=== PATIENT | male | born 1980 ===

== ENCOUNTER 2018-06-21 12:49 | Inpatient (IN) ==
[2018-06-21] MEDS ORDERED: Acetaminophen 325 MG Tablet PO PRN (16:55)
[2018-06-21] MEDS ORDERED: Bisacodyl 10 MG Supp RECTAL PRN (16:55)
[2018-06-21] MEDS ORDERED: LORazepam 1 MG Tablet PO PRN (17:02)
[2018-06-21] MEDS ORDERED: Haloperidol Inj 5 MG/ML Ampul IV.PUSH PRN (17:02)
--- NOTE | 2018-06-21 17:14 | P.HPCC ---
History of Present Illness Service: Critical care medicine Primary Care Physician: UNKNOWN Chief Complaint: Left foot pain History of Present Illness: This is a 38-year-old male. Date of admission 06/21/2018. Past medical history includes hepatitis C, ongoing EtOH and tobacco abuse and Suboxone use. Patient was admitted to [facility] as a Asaf Duran. He was found on the streets barefoot intoxicated trying to intrude a house which is not his. He was agitated swearing and required restraints. She received ziprasidone, haloperidol, lorazepam and chlorpromazine. He is admitted to the ICU at that facility secondary to severe delirium secondary to polysubstance abuse. CT brain at that facility revealed no acute intracranial findings. Patient had elevated transaminases likely secondary to rhabdomyolysis. He had elevated creatinine which is prerenal secondary to dehydration. Received aggressive hydration this is resolved. Was evaluated by Dr. Preston/psychiatry and placed on as needed haloperidol and chlorpromazine. He is currently receiving Lorazepam 0.5 mg 3 times daily as needed severe agitation. X-ray the foot reveal a left calcaneal fracture. Was evaluated by the orthopedic doctor that facility Vicky Who requested an emergent transfer to a trauma facility for emergent surgery. Patient complaining of pain in the left lower extremity is currently in a soft splint cast. Warm extremities well perfused. Call accepted for transfer center to evaluate patient. We will admit and transfer to hospitalist in a.m. 06/22. All laboratories and imaging are currently pending at time of dictation. Inpatient Certification: I certify that the inpatient services were ordered in accordance with Medicare regulations governing the order. This includes certification that hospital inpatient services are reasonable and necessary and in the case of services not specified as inpatient-only under 42 CFR 419.22(n), that they are appropriately provided as inpatient services in accordance to with the 2-midnight benchmark under 43 CFR 412.3(e) Estimated Total Length of Stay (Days): 3 Plans for Post Hospital Care: Not yet determined Review of Systems Constitutional: Reports body ache(s), Reports weakness, Denies anorexia, Denies night sweats Eyes: Denies blind spots, Denies blurry vision Ears, Nose, Mouth, and Throat: Denies facial pain, Denies post nasal drip, Denies throat swelling Cardiovascular: Denies chest pain, Denies shortness of breath Respiratory: Denies shortness of breath, Denies wheezing Gastrointestinal: Denies abdominal pain, Denies nausea, Denies vomiting Genitourinary: Denies urinary incontinence Musculoskeletal: Reports abnormal walking, Reports joint pain, Reports joint swelling, Denies stiffness Skin/Breast: Denies rash Neurologic: Reports confusion, Denies headache(s), Denies lack of coordination, Denies localized weakness, Denies restless legs, Denies tremor(s) Psychiatric: Denies anxiety, Denies panic attacks, Denies paranoia Endocrine: Denies increased urination Hematologic/Lymphatic: Denies easy bleeding Allergic/Immunologic: Denies GI upset with certain foods PMFSH - History History Provided By: Patient - Medical History Medical History: Medical History (Last Updated 06/21/18 @ 17:19 by Rojas Brown MD) Alcohol use Dental injury Hepatitis C Polysubstance dependence including opioid type drug, episodic abuse, with delirium Tobacco abuse - Surgical History Surgical History: Surgical History (Last Updated 06/21/18 @ 17:19 by Rojas Brown MD) Metal plate in left side of face Metal plate in right side of face - Family History Family History: Family History (Last Updated 06/21/18 @ 17:18 by Rojas Brown MD) Other No family history of cancer No family history of cerebrovascular accident No family history of sudden - Tobacco History Second Hand Smoke Exposure: Yes Tobacco Use In Past 30 Days: Yes Smoking Status: Former smoker Tobacco Type: Cigarettes - Alcohol History How Often Do You Have a Drink Containing Alcohol: 2 to 3 times a week - Substance Use History Substance History: Past History - Substance Use Type Alcohol Status: Active Route Used: By Mouth Opiates Status: Active Route Used: By Mouth, Intravenously Comment: positve on arrival to [facility] Medications and Allergies Active Medications: Active Medications Acetaminophen (Tylenol) 650 mg PO Q6H PRN PRN Reason: PAIN 1-10 AND/OR FEVER >101F Al Hydroxide/Mg Hydroxide (Milk Of Magnjean Liq) 30 ml PO Q12H PRN PRN Reason: Mild Constipation Albuterol (Albuterol Neb (Prn)) 2.5 mg NEB Q2HR NEB PRN PRN Reason: SHORTNESS OF BREATH/WHEEZING Bisacodyl (Dulcolax Supp) 10 mg RECTAL DAILY PRN PRN Reason: SEVERE CONSITIPATION Chlorhexidine Gluconate (Chlorhexidine 2% Cloth) 3 pack TOPICAL DAILY@0400 PARAS Stop: 06/27/18 03:59 Chlorhexidine Gluconate (Chlorhexidine 2% Cloth) 3 pack TOPICAL DAILY@0400 PRN PRN Reason: Extra cloth needed Stop: 06/27/18 03:59 Famotidine (Pepcid Pf Inj) 20 mg IV.PUSH Q12HR [facility] Flumazenil (Romazecon Inj) 0.2 mg IV.PUSH Q1M PRN PRN Reason: OVERSEDATION Folic Acid (Folic Acid) 1 mg PO DAILY [facility] Haloperidol Lactate (Haldol Inj) 1 mg IV.PUSH Q15M PRN PRN Reason: for severe agitation Heparin Sodium (Porcine) (Heparin Inj) 5,000 units SQ Q12H [facility] Sodium Chloride (Ns Inj) 1,000 mls @ 84 mls/hr IV.CONT .[id number] [facility] Lactulose (Lactulose Liq) 30 ml PO DAILY PRN PRN Reason: SEVERE CONSITIPATION Lorazepam (Ativan) 1 mg PO Q4H PRN PRN Reason: for CIWA 8-10 Lorazepam (Ativan) 2 mg PO Q2H PRN PRN Reason: for CIWA 11-14 Lorazepam (Ativan Inj) 2 mg IV.PUSH Q2H PRN PRN Reason: for CIWA 11-14 Lorazepam (Ativan Inj) 2 mg IV.PUSH Q1H PRN PRN Reason: for CIWA 15-20 Lorazepam (Ativan Inj) 2 mg IV.PUSH Q15M PRN PRN Reason: for CIWA > 20 Lorazepam (Ativan Inj) 1 mg IV.PUSH Q4H PRN PRN Reason: for CIWA 8-10 Morphine Sulfate (Morphine Inj) 2 mg IV.PUSH Q2H PRN PRN Reason: PAIN SCALE 6 TO 10 Multivitamins (Theragran) 1 tab PO DAILY [facility] Senna/Docusate Sodium (Karina-Colace) 1 tab PO BID [facility] Sennosides (Senokot) 17.2 mg PO Q12H PRN PRN Reason: Moderate Constipation Sodium Chloride (Ns Flush) 2 ml IV.FLUSH BID [facility] Sodium Chloride (Ns Flush) 2 ml IV.FLUSH PRN PRN PRN Reason: FLUSH AFTER USING IV ACCESS Thiamine HCl (Vitamin B1) 100 mg PO DAILY [facility] Ziprasidone (Geodon Inj) 10 mg IM Q12H PRN PRN Reason: Breakthrough agitation Stop: 06/24/18 17:02 Allergies Allergy/AdvReac Type Severity Reaction Status Date / Time No Known Allergies Allergy Unverified 06/21/18 16:55 Home Medications Medication Instructions Recorded Confirmed Type No Known Home Medications 06/21/18 06/21/18 History Exam Vital signs: Vital Signs 06/21/18 17:00 Temperature 98.6 F Pulse Rate 65 Respiratory Rate 23 Blood Pressure 170/84 H Pulse Oximetry 97 Intake & Output 06/20/18 06/21/18 06/21/18 18:59 06:59 18:59 Output Total 450 / 450 Balance -450 / -450 Weight 72.3 kg Output: Urine 450 / 450 Other: Weight On Admission 72.3 kg - Constitutional no acute distress - Routine HEENT Exam Head: Present: normocephalic, atraumatic Eye: Present: EOMI, PERRL ENT: Present: mucous membranes moist - Routine Neck Exam Present: supple. Absent: JVD - Routine Chest/Breast/Axilla Exam Chest wall: Absent: tenderness - Routine Respiratory Exam Present: CTA bilaterally. Absent: rales, rhonchi, wheezes - Routine Cardiovascular Exam Present: RRR, S1, S2. Absent: murmur, rubs, S3, S4, click - Routine Abdominal Exam Present: soft, normoactive bowel sounds - Routine Extremities Exam Present: edema, joint swelling. Absent: cyanosis, clubbing, amputation - Routine Skin Exam Present: intact - Routine Neurological Exam Present: alert, oriented X3, CN II-XII intact Septic Shock Reassessment Septic shock perfusion: reassessment completed Caprini VTE Risk Assessment Caprini VTE Risk Assessment: No/Low Risk (score <= 1) Caprini Risk Assessment Model: Point Value = 1 Point Value = 2 Point Value = 3 Point Value = 5 Age 41-60 Minor surgery BMI > 25 kg/m2 Swollen legs Varicose veins or History of unexplained or recurrent spontaneous Oral contraceptives or hormone replacement Sepsis (< 1 month) Serious lung disease, including pneumonia (< 1 month) Abnormal pulmonary function Acute myocardial infarction Congestive heart failure (< 1 month) History of inflammatory bowel disease Medical patient at bed rest Age 61-74 Arthroscopic surgery Major open surgery (> 45 min) Laparoscopic surgery (> 45 min) Malignancy Confined to bed (> 72 hours) Immobilizing plaster cast Central venous access Age >= 75 History of VTE Family history of VTE Factor V Leiden Prothrombin [id number] Lupus anticoagulant Anticardiolipin antibodies Elevated serum homocysteine Heparin-induced thrombocytopenia Other congenital or acquired thrombophilia Stroke (< 1 month) Elective arthroplasty Hip, pelvis, or leg fracture Acute spinal cord injury (< 1 month) Prophylaxis Regimen: Total Risk Factor Score Risk Level Prophylaxis Regimen 0-1 Low Early ambulation 2 Moderate Order ONE of the following: *Sequential Compression Device (SCD) *Heparin 5000 units SQ BID 3-4 Higher Order ONE of the following medications: *Heparin 5000 units SQ TID *Enoxaparin/Lovenox 40 mg SQ daily (WT < 150 kg, CrCl > 30 mL/min) *Enoxaparin/Lovenox 30 mg SQ daily (WT < 150 kg, CrCl > 10-29 mL/min) *Enoxaparin/Lovenox 30 mg SQ BID (WT < 150 kg, CrCl > 30 mL/min) AND/OR *Sequential Compression Device (SCD) 5 or more Highest Order ONE of the following medications: *Heparin 5000 units SQ TID (Preferred with Epidurals) *Enoxaparin/Lovenox 40 mg SQ daily (WT < 150 kg, CrCl > 30 mL/min) *Enoxaparin/Lovenox 30 mg SQ daily (WT < 150 kg, CrCl > 10-29 mL/min) *Enoxaparin/Lovenox 30 mg SQ BID (WT < 150 kg, CrCl > 30 mL/min) AND *Sequential Compression Device (SCD) Assessment and Plan - Assessment and Plan Plan: Neuro/Psych: Acute delirium secondary to polysubstance abuse EtOH abuse History of tobacco abuse History of opiate abuse/Suboxone use CIWA protocol initiated. Thiamine, folate and multivitamin daily As needed haloperidol and ziprasidone CT brain and ultrasound revealed no acute intracranial findings Acetaminophen for fever Morphine sulfate 2 mg IV every 2 hours as needed pain CV: Patient is currently normal sinus rhythm not requiring antihypertensives and/or vasopressors Continue normal saline at 84 cc an hour Resp: Tobacco abuse Nasal cannula to maintain saturations greater than equal to 92% Incentive spirometry while awake Follow-up chest x-ray Tobacco cessation self-evaluation palpable be provided GI: History of hepatitis C Elevated transaminases Outpatient epilepsy workup including checking genotype and viral load Liver function tests will be evaluated now Follow-up CPK : No indication for Cesar catheter Endo: Sliding scale insulin if indicated to maintain euglycemia Renal: Resolved acute kidney injury secondary to dehydration/prerenal Follow BMP at this facility. Continue normal saline 84 cc an hour Heme: CBC currently pending. Coags currently pending. ID: Monitor for signs and symptomatology infection MSK: Left calcaneal fracture Consultation to Dr. Kimball for evaluation treatment FEN: Replace electrolytes as clinically indicated Access -Utilize peripheral IV. Central line if indicated Prophylaxis -GI -famotidine -DVT -SCD/heparin subcu Level 2 admission. Patient is stable from a critical care medicine standpoint. Assign care to hospitalist in a.m. 06/22. Code Status: Full code Discussed Condition With: Patient. ISC RN. CARE plan discussed and all questions answered. H&P: Quality - VTE Deep Vein Thrombosis/Pulmonary Embolism Present on Admission: No
[2018-06-21] MEDS: Sod Chloride 0.9% Inj 1,000 ML IV.CONT SCH (18:04)
[2018-06-21] MEDS: Heparin - SQ 10,000 UNITS/ML Vial SQ SCH (18:04)
[2018-06-21] MEDS: Morphine Inj 4 MG/ML Vial IV.PUSH PRN (18:24)
[2018-06-21 18:27] LABS: Baso % (Auto) 0.4 % (0.0-2.0); Eos % (Auto) 0.2 % (0.0-4.0); Hematocrit 39.3 % (39.0-51.0); Hemoglobin 13.6 gm/dL (13.0-17.0); Lymph # (Auto) 1.4 th/mm3 (1.0-4.8); Lymph % (Auto) 16.5 % (9.0-44.0); Mean Corpuscular HGB Conc 34.5 % (32.0-36.0); Mean Corpuscular Hemoglobin 32.1 pg (27.0-34.0); Mean Corpuscular Volume 92.8 fL (80.0-100.0); Mean Platelet Volume 7.4 fL (7.0-11.0); Mono # (Auto) 0.8 th/mm3 (0.0-0.9); Mono % (Auto) 9.2 % (0.0-8.0); Neut # (Auto) 6.3 th/mm3 (1.8-7.7); Neut % (Auto) 73.7 % (16.0-70.0); Platelet Count 213 th/mm3 (150-450); Red Blood Count 4.23 mil/mm3 (4.50-5.90); Red Cell Distribution Width 13.3 % (11.6-17.2); White Blood Count 8.5 th/mm3 (4.0-11.0)
[2018-06-21 18:37] LABS: Activated Partial Thrombo Time 26.8 sec (24.3-30.1)
[2018-06-21 18:45] LABS: Anion Gap 6 meq/L (5-15); Blood Urea Nitrogen 9 mg/dL (7-18); Calcium 8.6 mg/dL (8.5-10.1); Carbon Dioxide 26.4 meq/L (21.0-32.0); Chloride 107 meq/L (98-107); Glomerular Filtration Rate Greater Than 89 mL/min (>89); Glucose,Random 94 mg/dL (74-106); Magnesium 2.1 mg/dL (1.5-2.5); Phosphorus 3.5 mg/dL (2.5-4.9); Potassium 3.6 meq/L (3.5-5.1); Sodium 139 meq/L (136-145)
--- NOTE | 2018-06-21 18:49 | XR ---
EXAM DATE: 06/21/2018 6:36 PM EDT AGE/SEX: 38 years / Male INDICATIONS: Cough. CLINICAL DATA: This is the patient's initial encounter. Patient reports that signs and symptoms have been present for 1 day and indicates a pain score of 0/10. MEDICAL/SURGICAL HISTORY: None. None. COMPARISON: No prior exams available for comparison. FINDINGS: No focal consolidation or effusion. No pneumothorax. Heart size normal. CONCLUSION: No active disease. Electronically signed by: Law Acevedo MD 06/21/2018 6:47 PM EDT
[2018-06-21] MEDS: Famotidine PF Inj 20 MG/2 ML Vial IV.PUSH SCH (20:37)
[2018-06-21] MEDS: Senna/Docusate Sodium 8.6/50 MG Tablet PO SCH (20:37)
[2018-06-22] MEDS: Morphine Inj 4 MG/ML Vial IV.PUSH PRN ×3 (00:36→05:48)
[2018-06-22] MEDS ORDERED: Chlorhexidine Gluconate 2% 1 Pack (2 Cloths) TOPICAL PRN (04:00)
[2018-06-22] MEDS: Sod Chloride 0.9% Inj 1,000 ML IV.CONT SCH (05:47)
[2018-06-22] MEDS: Chlorhexidine Gluconate 2% 1 Pack (2 Cloths) TOPICAL SCH (05:47)
[2018-06-22] MEDS: Heparin - SQ 10,000 UNITS/ML Vial SQ SCH ×3 (05:48→17:38)
[2018-06-22 06:29] LABS: Baso % (Auto) 0.5 % (0.0-2.0); Eos # (Auto) 0.1 th/mm3 (0.0-0.4); Eos % (Auto) 0.9 % (0.0-4.0); Hematocrit 37.7 % (39.0-51.0); Hemoglobin 12.7 gm/dL (13.0-17.0); Lymph # (Auto) 1.6 th/mm3 (1.0-4.8); Lymph % (Auto) 19.6 % (9.0-44.0); Mean Corpuscular HGB Conc 33.7 % (32.0-36.0); Mean Corpuscular Hemoglobin 30.9 pg (27.0-34.0); Mean Corpuscular Volume 91.5 fL (80.0-100.0); Mean Platelet Volume 7.9 fL (7.0-11.0); Mono # (Auto) 0.8 th/mm3 (0.0-0.9); Mono % (Auto) 9.1 % (0.0-8.0); Neut # (Auto) 5.8 th/mm3 (1.8-7.7); Neut % (Auto) 69.9 % (16.0-70.0); Platelet Count 227 th/mm3 (150-450); Red Blood Count 4.12 mil/mm3 (4.50-5.90); Red Cell Distribution Width 13.3 % (11.6-17.2); White Blood Count 8.3 th/mm3 (4.0-11.0)
[2018-06-22 06:52] LABS: Alanine Aminotransferase 75 U/L (12-78); Albumin 2.9 g/dL (3.4-5.0); Anion Gap 6 meq/L (5-15); Aspartate Aminotransferase 73 U/L (15-37); Blood Urea Nitrogen 9 mg/dL (7-18); Calcium 8.4 mg/dL (8.5-10.1); Chloride 108 meq/L (98-107); Glomerular Filtration Rate Greater Than 89 mL/min (>89); Glucose,Random 86 mg/dL (74-106); Phosphorus 3.6 mg/dL (2.5-4.9); Potassium 3.7 meq/L (3.5-5.1); Sodium 140 meq/L (136-145)
[2018-06-22 07:06] LABS: Alkaline Phosphatase 52 U/L (45-117); Creatine Kinase 1382 U/L (39-308); Total Protein 6.4 g/dL (6.4-8.2)
--- NOTE | 2018-06-22 07:28 | P.PNOP ---
Subjective Interval history: s/p left calcaneus fx does not remember how he did it. states happened thursday Physical Exam Vital signs: Vital Signs 06/21/18 17:00 06/21/18 20:00 06/21/18 22:00 Temperature 98.6 F 98.8 F Pulse Rate 65 60 79 Respiratory Rate 23 22 Blood Pressure 170/84 H 136/83 Pulse Oximetry 97 99 06/21/18 23:03 06/22/18 00:00 06/22/18 00:38 Temperature 98.7 F Pulse Rate 74 Respiratory Rate 20 5 L Blood Pressure 134/86 Pulse Oximetry 100 98 06/22/18 02:00 06/22/18 04:00 06/22/18 04:57 Temperature 98.5 F Pulse Rate 61 62 Respiratory Rate 22 22 Blood Pressure 125/77 Pulse Oximetry 100 06/22/18 06:00 Temperature Pulse Rate 64 Respiratory Rate Blood Pressure Pulse Oximetry Intake & Output 06/21/18 06/22/18 06/22/18 18:59 06:59 18:59 Intake Total 1240 / 1240 Output Total 450 / 450 1800 / 1800 Balance -450 / -450 -560 / -560 Weight 72.3 kg 72.1 kg Intake: IV 1000 / 1000 NS Inj 1,000 ML @ 84 mls/hr IV. 1000 / 1000 CONT .[id number] [facility] Rx#:[id number] Oral 240 / 240 Output: Urine 450 / 450 1800 / 1800 Other: # Bowel Movements 0 0 Weight On Admission 72.3 kg Narrative: LLE: area of skin necrosis on posterior calc. moderate swelling. nvi Results - Labs CBC & Chem 7: 06/22/18 04:50 06/22/18 04:50 Laboratory Results - last 24 hr 06/21/18 06/21/18 06/21/18 17:10 18:00 18:00 WBC 8.5 RBC 4.23 L Hgb 13.6 Hct 39.3 MCV 92.8 MCH 32.1 MCHC 34.5 RDW 13.3 Plt Count 213 MPV 7.4 Neut % (Auto) 73.7 H Lymph % (Auto) 16.5 Citrus % (Auto) 9.2 H Eos % (Auto) 0.2 Baso % (Auto) 0.4 Neut # (Auto) 6.3 Lymph # (Auto) 1.4 Citrus # (Auto) 0.8 Eos # (Auto) 0.0 Baso # (Auto) 0.0 WBC Differential . Differential Comment Auto diff final PT 10.0 INR 1.0 APTT 26.8 Sodium Potassium Chloride Carbon Dioxide Anion Gap BUN Creatinine Estimated GFR Random Glucose Lactic Acid Calcium Phosphorus Magnesium Total Bilirubin AST ALT Alkaline Phosphatase Total Creatine Kinase Total Protein Albumin Nasal Screen MRSA (PCR) Not detected 06/21/18 06/21/18 06/22/18 18:00 18:00 04:50 WBC 8.3 RBC 4.12 L Hgb 12.7 L Hct 37.7 L MCV 91.5 MCH 30.9 MCHC 33.7 RDW 13.3 Plt Count 227 MPV 7.9 Neut % (Auto) 69.9 Lymph % (Auto) 19.6 Citrus % (Auto) 9.1 H Eos % (Auto) 0.9 Baso % (Auto) 0.5 Neut # (Auto) 5.8 Lymph # (Auto) 1.6 Citrus # (Auto) 0.8 Eos # (Auto) 0.1 Baso # (Auto) 0.0 WBC Differential . Differential Comment Auto diff final PT INR APTT Sodium 139 Potassium 3.6 Chloride 107 Carbon Dioxide 26.4 Anion Gap 6 BUN 9 Creatinine 0.65 Estimated GFR Greater than 89 Random Glucose 94 Lactic Acid 0.8 Calcium 8.6 Phosphorus 3.5 Magnesium 2.1 Total Bilirubin AST ALT Alkaline Phosphatase Total Creatine Kinase Total Protein Albumin Nasal Screen MRSA (PCR) 06/22/18 04:50 WBC RBC Hgb Hct MCV MCH MCHC RDW Plt Count MPV Neut % (Auto) Lymph % (Auto) Citrus % (Auto) Eos % (Auto) Baso % (Auto) Neut # (Auto) Lymph # (Auto) Citrus # (Auto) Eos # (Auto) Baso # (Auto) WBC Differential Differential Comment PT INR APTT Sodium 140 Potassium 3.7 Chloride 108 H Carbon Dioxide 26.0 Anion Gap 6 BUN 9 Creatinine 0.66 Estimated GFR Greater than 89 Random Glucose 86 Lactic Acid Calcium 8.4 L Phosphorus 3.6 Magnesium 2.0 Total Bilirubin 0.4 AST 73 H ALT 75 Alkaline Phosphatase 52 Total Creatine Kinase 1382 H Total Protein 6.4 Albumin 2.9 L Nasal Screen MRSA (PCR) - Imaging Impressions Chest X-Ray 06/21/18 16:57 CONCLUSION: No active disease. Assessment and Plan - Assessment and Plan 1) Left Tongue Type Calcaneus fx -npo -consents -surgery today abel Kimball
[2018-06-22 07:41] LABS: CKMB Percent 0.3 % (0.0-4.0); Creatine Kinase MB 4.7 ng/mL (0.5-3.6)
--- NOTE | 2018-06-22 08:47 | ECG ---
Date Performed: 06/21/2018 Time Performed: 17:16:28 PTAGE: 38 years EKG: Sinus rhythm WITH SHORT [place] INTERVAL BORDERLINE ECG NO PREVIOUS TRACING DOCTOR: Raj Strong Interpretating Date/Time 06/22/2018 08:45:29
[2018-06-22] MEDS: Folic Acid 1 MG Tablet PO SCH (09:04)
[2018-06-22] MEDS: Famotidine PF Inj 20 MG/2 ML Vial IV.PUSH SCH ×2 (09:04→20:38)
[2018-06-22] MEDS: Senna/Docusate Sodium 8.6/50 MG Tablet PO SCH ×2 (09:05→20:38)
[2018-06-22] MEDS ORDERED: ceFAZolin 2 GM Premix Inj 2 GM/50 ML PIGGYBACK IV.SIG ONE ×2 (09:41→12:16)
[2018-06-22] MEDS ORDERED: Morphine Inj 4 MG/ML Vial IV.PUSH PRN (11:51)
[2018-06-22] MEDS ORDERED: Post-op Orders (for Pharmacy) OTHER STA (11:51)
[2018-06-22] MEDS ORDERED: Lidocaine PF 1% Inj 5 ML Syringe INFILTRATN ONE (12:00)
[2018-06-22] MEDS ORDERED: Glycopyrrolate Inj 1 MG/5 ML Syringe IV.PUSH ONE (12:00)
[2018-06-22] MEDS ORDERED: Neostigmine Inj 5 MG/5 ML Syringe IV.PUSH ONE (12:00)
--- NOTE | 2018-06-22 12:01 | P.OP ---
- Preoperative Diagnosis (1) Closed left calcaneal fracture Date of procedure: 06/22/18 Procedure: Open reduction internal fixation left calcaneus fracture Anesthesia: GETLilian Surgeon: Greg Lee MD Tube Depatcher: TERESA Alejo PA-C The surgical procedure was assisted by my physician clerical administrative assistant. My P.A. presence was necessary throughout this case for the manipulation and positioning of the surgical extremity. My P.A. was assisting me throughout the duration of this procedure. The skill set of a physician clerical administrative assistant was medically necessary to complete this procedure. During the surgical case the surgical garment assembly supervisor was working at the back table and the physician clerical administrative assistant was directly assisting me. Operation and Findings: Implants used: Synthes 4.0 cannulated screws Plan of activity: Strict nonweightbearing Informed consent obtained, operative site was marked. The foot and ankle were seen and evaluated this morning. Patient's injury was approximately 4 days ago. Patient has significant tenting of the skin. There is a 1 cm x 2 cm of necrotic skin over the fracture site because of the displaced fracture fragment. I discussed with him the risk of getting further wound breakdown and infection. At this point I feel that surgery needs to be performed today to relieve the tension off the skin and prevent further skin necrosis. Patient is in agreement with this plan and informed consent was obtained after detailed discussion of the risk and benefits. I explained the patient that he cannot smoke or use nicotine products as this is likely to increase his likelihood of developing an infection. He will need to be strictly nonweightbearing or he will likely further displaced fracture. He was brought to the operating room and placed on the operating room table. He was given intravenous sedation, general endotracheal anesthesia. He received IV antibiotics and was placed in the lateral decubitus position. Foot and leg were prepped with alcohol, followed by Hibiclens, draped in usual sterile fashion. A time out procedure was preformed. The procedure began with a small percutaneous incision above and below the fracture site. Using a fracture tenaculum the fracture was reduced. At this point it was noted that the skin was caught and adherent to the fracture site. A 1 cm incision was made over the lateral aspect of the fracture. A [place] elevator was used to remove the soft tissue and skin from within the fracture site. At this point the fracture was reduced and compressed with fracture tenaculums. Multiplanar fluoroscopy confirmed appropriate alignment of the fracture. Using small percutaneous incisions multiple guidepins for the Synthes 4.0 cannulated screws were placed from superior to inferior across the fracture site. Screw lengths were measured. Cannulated drill was placed over the screws. Appropriate length screws were now placed. Good compression was obtained. K-wires were removed. Final fluoroscopy well-aligned fracture with well-placed hardware. The skin was examined. There was minimal tension on the skin after reduction of fracture. The areas of necrotic skin are directly over the Achilles tendon and fracture site. Skin was now closed with 3-0 nylon, in vertical mattress fashion. Bacitracin ointment was applied to the area of skin necrosis. Sterile dressings were applied the patient was placed into a well molded padded splint. The patient was transferred to the Recovery Room in stable condition.
[2018-06-22] MEDS ORDERED: *Meperidine Inj 25 MG/ML Vial PERIprocedural Use ONLY ONE (12:12)
[2018-06-22] MEDS ORDERED: fentaNYL Citrate Inj 1,000 MCG/20 ML Vial ONE (12:17)
[2018-06-22] MEDS ORDERED: fentaNYL Citrate Inj 100 MCG/2 ML Ampul ONE (12:18)
[2018-06-22] MEDS ORDERED: *morphine SULFATE 4 MG/ML PERIprocedure ONLY ONE ×3 (12:26→12:40)
--- NOTE | 2018-06-22 12:32 | MB ---
cc: Greg Kimball MD DATE: 06/22/2018 REASON FOR CONSULTATION: Displaced left calcaneus fracture. HISTORY OF PRESENT ILLNESS: This patient, under the alias of Adalgisa Robertson is a 38-year-old male who was initially admitted to [facility]. He was found to have mental status changes, likely secondary to intoxication or drugs. He had severe delirium. He was subsequently arrested and incarcerated. He was admitted to the Intensive Care Unit at [facility]. Subsequently, the patient was found to have a displaced left calcaneus fracture. He was subsequently transferred to [place] for definitive treatment of his left calcaneus fracture. The patient does not recall his injury. He is not sure how his foot was injured. Pain is worse with movement and is improved with rest. He is currently awake and alert on the Orthopedic Floor. PAST MEDICAL HISTORY: ILLNESSES: Hepatitis C, alcohol abuse, drug use. PAST SURGICAL HISTORY: ORIF of facial fractures. ALLERGIES: NO KNOWN DRUG ALLERGIES. MEDICATIONS: Please see EMR for complete list of inpatient medications. SOCIAL HISTORY: The patient denies any outpatient prescription medications. FAMILY HISTORY: Noncontributory. He denies any known familial medical problems. REVIEW OF SYSTEMS: The patient denies fevers, chills, weight loss, headache, visual changes, hearing loss, chest pain, palpitations, shortness of breath, nausea, vomiting, urinary changes, diarrhea, bowel changes, neck pain, back pain, skin rashes, weakness or numbness of extremities, anxiety or depression. He complains of left foot pain. LABORATORY DATA: The patient has a white blood cell count of 8.3, hematocrit of 37.7, platelet count of 227. INR is 1.0. Potassium is 3.7, creatinine 0.66. X-RAYS: X-rays of the left foot were reviewed from [facility]. X-rays reveal a displaced tongue-type calcaneus fracture. There is significant displacement of fracture. PHYSICAL EXAMINATION: GENERAL: The patient is a 38-year-old male. He is awake and alert. He is in no acute distress. He is being supervised by two correctional officers. VITAL SIGNS: Temperature 98.3, pulse 77, respirations 18, blood pressure 138/63, O2 saturations 100% on room air. HEENT: Head: The patient is normocephalic. Pupils are equal. NECK: Soft, nontender. The trachea is in the midline. ABDOMEN: Soft, nontender, nondistended. EXTREMITIES: Examination of bilateral upper extremities reveals no obvious pain or deformity with shoulder, elbow or wrist motion. He has intact sensation in all fingers. He has good capillary refill in all fingers. Skin is intact. Examination of the right leg reveals no pain with hip, knee or ankle motion. Skin is intact. Dorsalis pedis pulse is palpable. Sensation is intact. Examination of left leg reveals no pain with hip or knee motion. He has mild swelling of his foot and he has some deformity of his foot. He is very tender to palpation over the calcaneus. There is significant skin tension over the calcaneus fracture. There is a 1 cm x 2 cm area of necrotic skin. Dorsalis pedis pulse is palpable. IMPRESSION: 1. Alcohol abuse. 2. Polysubstance abuse. 3. Displaced left calcaneus fracture. 4. Skin necrosis left foot. PLAN: Treatment options were discussed with the patient. At this point, I would recommend open reduction, internal fixation of left calcaneus. I explained to him that he already has some skin necrosis secondary to the fracture. There is a risk of developing further wound problems and infection. Risks of surgery include bleeding, infection, injuries to arteries, nerves or blood vessels, wound infection, need for further surgery, as well as medical complications including blood clot, stroke, heart attack and . I explained to the patient that, if he has a large area of skin necrosis and infection, he could end up needing amputation of his foot. The risks of surgery was discussed and informed consent was obtained. At this point I feel that the surgery is medically necessary and urgent in nature secondary to the skin problems. I will plan on surgery today. A mid-level provider in my office, nurse practitioner or PA, may see this patient on a follow-up basis and continue to implement the objective of this plan including: Starting or adjusting medications, injections of muscle, tendon, bursa or joints, cast application, orthotic or brace application, physical therapy, further radiographic studies including x-ray, MRI, CT, ultrasounds or bone scan, vascular studies, neurologic studies, or other specialist consultations, and proceeding with surgical management as appropriate. MD LIAM Carvalho/MONICA , 12:07 PM , 12:17 PM
[2018-06-22] MEDS: Ketorolac Inj 30 MG/ML (IVP) Vial IV.PUSH SCH ×2 (13:14→23:00)
[2018-06-22] MEDS: Calcium/Vitamin D 250/125 MG Tablet PO SCH ×2 (13:22→17:28)
--- NOTE | 2018-06-22 13:47 | XR ---
EXAM DATE: 06/22/2018 1:39 PM EDT AGE/SEX: 38 years / Male INDICATIONS: ORIF left calcaneus fracture. CLINICAL DATA: This is the patient's initial encounter. Patient reports that signs and symptoms have been present for 1 day and indicates a pain score of Nonresponsive. MEDICAL/SURGICAL HISTORY: Non-responsive. Non-responsive. COMPARISON: No prior exams available for comparison. FINDINGS: Spot intraoperative fluoroscopic views of the left calcaneus demonstrate for screws traversing the ca lcaneus across the fracture site. Excellent alignment. CONCLUSION: ORIF left calcaneus fracture. Electronically signed by: Daniel Randolph MD 06/22/2018 1:46 PM EDT
--- NOTE | 2018-06-22 14:03 | P.PN ---
Subjective Interval history: 38-year-old male with a history of polysubstance abuse who suffered a calcaneal fracture of his left foot. He transferred to us on 06/21/2018 and is scheduled for surgical repair of his foot today. He has 2 longterm guards at bedside, pain is adequately controlled. Physical Exam Vital signs: Vital Signs 06/21/18 17:00 06/21/18 20:00 06/21/18 22:00 Temperature 98.6 F 98.8 F Pulse Rate 65 60 79 Respiratory Rate 23 22 Blood Pressure 170/84 H 136/83 Pulse Oximetry 97 99 06/21/18 23:03 06/22/18 00:00 06/22/18 00:38 Temperature 98.7 F Pulse Rate 74 Respiratory Rate 20 5 L Blood Pressure 134/86 Pulse Oximetry 100 98 06/22/18 02:00 06/22/18 04:00 06/22/18 04:57 Temperature 98.5 F Pulse Rate 61 62 Respiratory Rate 22 22 Blood Pressure 125/77 Pulse Oximetry 100 06/22/18 06:00 06/22/18 07:28 06/22/18 08:00 Temperature 98.3 F Pulse Rate 64 60 Respiratory Rate 4 L 16 Blood Pressure 137/81 Pulse Oximetry 98 06/22/18 08:34 06/22/18 09:28 06/22/18 10:50 Temperature 98.3 F 98.3 F Pulse Rate 77 77 Respiratory Rate 18 18 Blood Pressure 138/63 138/63 Pulse Oximetry 99 100 100 06/22/18 12:12 06/22/18 12:30 06/22/18 12:50 Temperature 97.7 F 97.7 F Pulse Rate 86 80 61 Respiratory Rate 20 20 Blood Pressure 146/96 H 147/92 H 137/92 H Pulse Oximetry 98 98 98 Intake & Output 06/21/18 06/22/18 06/22/18 18:59 06:59 18:59 Intake Total 1240 / 1240 750 / 750 Output Total 450 / 450 1800 / 1800 10 Balance -450 / -450 -560 / -560 740 / 740 Weight 72.3 kg 72.1 kg Intake: IV 1000 / 1000 50 / 50 NS Inj 1,000 ML @ 84 mls/hr IV. 1000 / 1000 CONT .[id number] [facility] Rx#:[id number] Ancef 2 GM Premix Inj 2 gm In 50 / 50 50 ml @ 100 mls/hr IV.SIG ONCE ONE Rx#:[id number] Oral 240 / 240 Anesthesia Amount 700 / 700 Output: Urine 450 / 450 1800 / 1800 Estimated Blood Loss 10 / 10 Other: # Bowel Movements 0 0 Weight On Admission 72.3 kg Narrative: GENERAL: AAOx3, no acute distress SKIN: Warm and dry. No rashes HEAD: Atruamtic, normocephalic. EYES: No scleral icterus. No injection or drainage. ENT: Moist mucous membranes, patent nares, no erythema of oropharynx. NECK: Supple, trachea midline. No JVD or lymphadenopathy. Normal thyroid. CARDIOVASCULAR: Regular rate and rhythm. No murmurs, gallops, or rubs. RESPIRATORY: Breath sounds clear equal bilaterally. No crackles or wheezes. No accessory muscle use. GASTROINTESTINAL: Abdomen soft, non-tender, nondistended, normal active bowel sounds MUSCULOSKELETAL: No cyanosis, or edema. Left heel and soft cast NEURO: CN II-XII grossly intact, no focal deficits, no slurring of speech Results - Labs CBC & Chem 7: 06/22/18 04:50 06/22/18 04:50 Laboratory Results - last 24 hr 06/21/18 06/21/18 06/21/18 17:10 18:00 18:00 WBC 8.5 RBC 4.23 L Hgb 13.6 Hct 39.3 MCV 92.8 MCH 32.1 MCHC 34.5 RDW 13.3 Plt Count 213 MPV 7.4 Neut % (Auto) 73.7 H Lymph % (Auto) 16.5 [place] % (Auto) 9.2 H Eos % (Auto) 0.2 Baso % (Auto) 0.4 Neut # (Auto) 6.3 Lymph # (Auto) 1.4 [place] # (Auto) 0.8 Eos # (Auto) 0.0 Baso # (Auto) 0.0 WBC Differential . Differential Comment Auto diff final PT 10.0 INR 1.0 APTT 26.8 Sodium Potassium Chloride Carbon Dioxide Anion Gap BUN Creatinine Estimated GFR Random Glucose Lactic Acid Calcium Phosphorus Magnesium Total Bilirubin AST ALT Alkaline Phosphatase Total Creatine Kinase CK-MB (CK-2) CK-MB (CK-2) % Total Protein Albumin Nasal Screen MRSA (PCR) Not detected 06/21/18 06/21/18 06/22/18 18:00 18:00 04:50 WBC 8.3 RBC 4.12 L Hgb 12.7 L Hct 37.7 L MCV 91.5 MCH 30.9 MCHC 33.7 RDW 13.3 Plt Count 227 MPV 7.9 Neut % (Auto) 69.9 Lymph % (Auto) 19.6 [place] % (Auto) 9.1 H Eos % (Auto) 0.9 Baso % (Auto) 0.5 Neut # (Auto) 5.8 Lymph # (Auto) 1.6 [place] # (Auto) 0.8 Eos # (Auto) 0.1 Baso # (Auto) 0.0 WBC Differential . Differential Comment Auto diff final PT INR APTT Sodium 139 Potassium 3.6 Chloride 107 Carbon Dioxide 26.4 Anion Gap 6 BUN 9 Creatinine 0.65 Estimated GFR Greater than 89 Random Glucose 94 Lactic Acid 0.8 Calcium 8.6 Phosphorus 3.5 Magnesium 2.1 Total Bilirubin AST ALT Alkaline Phosphatase Total Creatine Kinase CK-MB (CK-2) CK-MB (CK-2) % Total Protein Albumin Nasal Screen MRSA (PCR) 06/22/18 04:50 WBC RBC Hgb Hct MCV MCH MCHC RDW Plt Count MPV Neut % (Auto) Lymph % (Auto) [place] % (Auto) Eos % (Auto) Baso % (Auto) Neut # (Auto) Lymph # (Auto) [place] # (Auto) Eos # (Auto) Baso # (Auto) WBC Differential Differential Comment PT INR APTT Sodium 140 Potassium 3.7 Chloride 108 H Carbon Dioxide 26.0 Anion Gap 6 BUN 9 Creatinine 0.66 Estimated GFR Greater than 89 Random Glucose 86 Lactic Acid Calcium 8.4 L Phosphorus 3.6 Magnesium 2.0 Total Bilirubin 0.4 AST 73 H ALT 75 Alkaline Phosphatase 52 Total Creatine Kinase 1382 H CK-MB (CK-2) 4.7 H CK-MB (CK-2) % 0.3 Total Protein 6.4 Albumin 2.9 L Nasal Screen MRSA (PCR) - Imaging Impressions Chest X-Ray 06/21/18 16:57 CONCLUSION: No active disease. Foot X-Ray 06/22/18 00:00 CONCLUSION: ORIF left calcaneus fracture. Assessment and Plan - Plan Left calcaneal fracture Open reduction internal fixation to be performed 06/22/2018 Appreciate orthopedics consult h/o polysubstance abuse History of IV drug use, recreational drugs, alcohol No current signs of withdrawal, patient has been imprisoned recently Monitor for signs of withdrawal Consider pain tolerance postop DVT prophylaxis Undergoing surgery today, will look for orthopedic recommendations
[2018-06-22] MEDS: ceFAZolin 2 GM Premix Inj 2 GM/50 ML PIGGYBACK IV.SIG SCH (17:28)
--- NOTE | 2018-06-22 17:49 | ECG ---
Date Performed: 06/22/2018 Time Performed: 07:46:58 PTAGE: 38 years EKG: Sinus rhythm Septal T wave changes are nonspecific Borderline ECG Since the PREVIOUS TRACING , no significant change noted PREVIOUS TRACIN06/21/2018 17.16 DOCTOR: Raj Strong Interpretating Date/Time 06/22/2018 17:47:26
[2018-06-22] MEDS: Vancomycin Inj 1,000 MG in Sodium Chlor 0.9% Inj 250 ML IV.SIG SCH (22:34)
[2018-06-23] MEDS: Sod Chloride 0.9% Inj 1,000 ML IV.CONT SCH ×4 (02:30→21:49)
[2018-06-23] MEDS: ceFAZolin 2 GM Premix Inj 2 GM/50 ML PIGGYBACK IV.SIG SCH ×2 (02:32→09:56)
[2018-06-23] MEDS: Chlorhexidine Gluconate 2% 1 Pack (2 Cloths) TOPICAL SCH (04:48)
[2018-06-23] MEDS: Heparin - SQ 10,000 UNITS/ML Vial SQ SCH ×2 (05:01→18:08)
--- NOTE | 2018-06-23 07:01 | P.PNOP ---
Subjective Interval history: POD 1 s/p ORIF left calcaneus doing well. pain controlled. resting comfortably. Physical Exam Vital signs: Vital Signs 06/22/18 07:28 06/22/18 08:00 06/22/18 08:34 Temperature 98.3 F Pulse Rate 60 Respiratory Rate 4 L 16 Blood Pressure 137/81 Pulse Oximetry 98 99 06/22/18 09:28 06/22/18 10:50 06/22/18 12:12 Temperature 98.3 F 98.3 F 97.7 F Pulse Rate 77 77 86 Respiratory Rate 18 18 20 Blood Pressure 138/63 138/63 146/96 H Pulse Oximetry 100 100 98 06/22/18 12:30 06/22/18 12:50 06/22/18 16:00 Temperature 97.7 F 98.4 F Pulse Rate 80 61 79 Respiratory Rate 20 14 Blood Pressure 147/92 H 137/92 H 142/80 H Pulse Oximetry 98 98 100 06/22/18 19:28 06/22/18 19:58 06/22/18 20:00 Temperature 98.5 F Pulse Rate 54 L Respiratory Rate 22 22 20 Blood Pressure 119/82 Pulse Oximetry 100 06/22/18 20:50 06/22/18 21:03 06/22/18 22:00 Temperature Pulse Rate 68 Respiratory Rate 14 Blood Pressure Pulse Oximetry 99 06/22/18 22:54 06/22/18 23:24 06/22/18 23:30 Temperature Pulse Rate Respiratory Rate 22 15 15 Blood Pressure Pulse Oximetry 06/23/18 00:00 06/23/18 02:00 06/23/18 04:00 Temperature 98.6 F 98.4 F Pulse Rate 54 L 67 69 Respiratory Rate 15 20 Blood Pressure 119/67 136/87 Pulse Oximetry 100 100 06/23/18 04:53 06/23/18 06:00 Temperature Pulse Rate 56 L Respiratory Rate 20 Blood Pressure Pulse Oximetry Intake & Output 06/22/18 06/23/18 06/23/18 18:59 06:59 18:59 Intake Total 1760 / 1760 3650 / 3650 Output Total 1310 / 1310 2100 / 2100 Balance 450 / 450 1550 / 1550 Weight 76.1 kg Intake: IV 100 / 100 2250 / 2250 LR 1000 mL Inj 1,000 ML @ 80 1000 / 1000 mls/hr IV.CONT .[id number] [facility] Rx# :[id number] NS Inj 1,000 ML @ 84 mls/hr IV. 1000 / 1000 CONT .[id number] [facility] Rx#:[id number] Vancomycin Inj 1,000 MG In NS 250 / 250 Inj 250 ML @ 250 mls/hr IV.SIG Q12H [facility] Rx#:[id number] Ancef 2 GM Premix Inj 2 gm In 100 / 100 50 ml @ 100 mls/hr IV.SIG Q8H [facility] Rx#:[id number] Oral 960 / 960 700 / 700 Anesthesia Amount 700 / 700 700 / 700 Output: Urine 1300 / 1300 2100 / 2100 Estimated Blood Loss 10 Other: # Voids 2 3 # Bowel Movements 0 0 Narrative: LLE: +short leg splint. intact. NVI Results - Labs CBC & Chem 7: 06/22/18 04:50 06/22/18 04:50 Laboratory Results - last 24 hr 06/22/18 04:50 Total Bilirubin 0.4 Alkaline Phosphatase 52 Total Creatine Kinase 1382 H CK-MB (CK-2) 4.7 H CK-MB (CK-2) % 0.3 Total Protein 6.4 - Imaging Impressions Foot X-Ray 06/22/18 00:00 CONCLUSION: ORIF left calcaneus fracture. Assessment and Plan - Assessment and Plan 1) Left Tongue Type Calcaneus fx s/p ORIF - POD 1 -NWB -elevate -maintain splint at all times -ortho surgeries complete -DC planning back to correctional facility -plan for possible DC tomorrow -f/u abel Kimball or [facility] in 2 weeks
[2018-06-23] MEDS: Senna/Docusate Sodium 8.6/50 MG Tablet PO SCH ×2 (08:13→20:18)
[2018-06-23] MEDS: Folic Acid 1 MG Tablet PO SCH (08:14)
[2018-06-23] MEDS: Famotidine PF Inj 20 MG/2 ML Vial IV.PUSH SCH ×2 (08:14→20:18)
[2018-06-23] MEDS: Calcium/Vitamin D 250/125 MG Tablet PO SCH ×3 (08:14→18:08)
--- NOTE | 2018-06-23 10:06 | P.PN ---
Subjective Interval history: Patient is doing well postop. Pain is adequately controlled with current narcotics. He is incarcerated and will need to be off all narcotics prior to discharge. He denies any nausea or vomiting. Physical Exam Vital signs: Vital Signs 06/22/18 10:50 06/22/18 12:12 06/22/18 12:30 Temperature 98.3 F 97.7 F Pulse Rate 77 86 80 Respiratory Rate 18 20 20 Blood Pressure 138/63 146/96 H 147/92 H Pulse Oximetry 100 98 98 06/22/18 12:50 06/22/18 16:00 06/22/18 19:28 Temperature 97.7 F 98.4 F Pulse Rate 61 79 Respiratory Rate 14 22 Blood Pressure 137/92 H 142/80 H Pulse Oximetry 98 100 06/22/18 19:58 06/22/18 20:00 06/22/18 20:50 Temperature 98.5 F Pulse Rate 54 L Respiratory Rate 22 20 Blood Pressure 119/82 Pulse Oximetry 100 99 06/22/18 21:03 06/22/18 22:00 06/22/18 22:54 Temperature Pulse Rate 68 Respiratory Rate 14 22 Blood Pressure Pulse Oximetry 06/22/18 23:24 06/22/18 23:30 06/23/18 00:00 Temperature 98.6 F Pulse Rate 54 L Respiratory Rate 15 15 15 Blood Pressure 119/67 Pulse Oximetry 100 06/23/18 02:00 06/23/18 04:00 06/23/18 04:53 Temperature 98.4 F Pulse Rate 67 69 Respiratory Rate 20 20 Blood Pressure 136/87 Pulse Oximetry 100 06/23/18 06:00 06/23/18 08:00 06/23/18 08:09 Temperature 98.2 F Pulse Rate 56 L 63 Respiratory Rate 16 18 Blood Pressure 112/78 Pulse Oximetry 99 06/23/18 09:55 Temperature Pulse Rate Respiratory Rate 18 Blood Pressure Pulse Oximetry Intake & Output 06/22/18 06/23/18 06/23/18 18:59 06:59 18:59 Intake Total 1760 / 1760 3650 / 3650 110 / 110 Output Total 1310 / 1310 2100 / 2100 Balance 450 / 450 1550 / 1550 110 / 110 Weight 76.1 kg Intake: IV 100 / 100 2250 / 2250 50 / 50 LR 1000 mL Inj 1,000 ML @ 80 1000 / 1000 mls/hr IV.CONT .[id number] [facility] Rx# :[id number] NS Inj 1,000 ML @ 84 mls/hr IV. 1000 / 1000 CONT .[id number] [facility] Rx#:[id number] Vancomycin Inj 1,000 MG In NS 250 / 250 Inj 250 ML @ 250 mls/hr IV.SIG Q12H [facility] Rx#:[id number] Ancef 2 GM Premix Inj 2 gm In 100 / 100 50 / 50 50 ml @ 100 mls/hr IV.SIG Q8H [facility] Rx#:[id number] Oral 960 / 960 700 / 700 60 / 60 Anesthesia Amount 700 / 700 700 / 700 Output: Urine 1300 / 1300 2100 / 2100 Estimated Blood Loss 10 / 10 Other: # Voids 2 3 # Bowel Movements 0 0 Narrative: GENERAL: AAOx3, no acute distress SKIN: Warm and dry. No rashes HEAD: Atruamtic, normocephalic. EYES: No scleral icterus. No injection or drainage. ENT: Moist mucous membranes, patent nares, no erythema of oropharynx. NECK: Supple, trachea midline. No JVD or lymphadenopathy. Normal thyroid. CARDIOVASCULAR: Regular rate and rhythm. No murmurs, gallops, or rubs. RESPIRATORY: Breath sounds clear equal bilaterally. No crackles or wheezes. No accessory muscle use. GASTROINTESTINAL: Abdomen soft, non-tender, nondistended, normal active bowel sounds MUSCULOSKELETAL: No cyanosis, or edema. Left lower extremity in soft cast NEURO: CN II-XII grossly intact, no focal deficits, no slurring of speech Results - Labs CBC & Chem 7: 06/22/18 04:50 06/22/18 04:50 - Imaging Impressions Foot X-Ray 06/22/18 00:00 CONCLUSION: ORIF left calcaneus fracture. Assessment and Plan - Plan Left calcaneal fracture ORIF of left talus on 06/22/2018 Appreciate orthopedics consult Due to incarceration in alf policy patient will have to be off all narcotics prior to discharge h/o polysubstance abuse History of IV drug use, recreational drugs, alcohol No current signs of withdrawal, patient has been imprisoned recently Monitor for signs of withdrawal Consider pain tolerance postop DVT prophylaxis Heparin Discharge planning Half-Way policy is a narcotic free environment, patient will need to be discharged with Tylenol and ibuprofen Allowing one day for recovery then will attempt wean off of narcotics. Aiming for Thursday discharge.
[2018-06-23] MEDS: Vancomycin Inj 1,000 MG in Sodium Chlor 0.9% Inj 250 ML IV.SIG SCH (11:14)
[2018-06-23] MEDS: Ketorolac Inj 30 MG/ML (IVP) Vial IV.PUSH SCH (11:57)
[2018-06-23] MEDS: ceFAZolin 2 GM/NS 100 ML IV; Q8H IV.SIG SCH ×2 (18:08)
[2018-06-24] MEDS: ceFAZolin 2 GM/NS 100 ML IV; Q8H IV.SIG SCH ×4 (02:13→11:29)
[2018-06-24 05:32] LABS: Mean Corpuscular HGB Conc 34.4 % (32.0-36.0); Mean Corpuscular Hemoglobin 31.7 pg (27.0-34.0); Mean Corpuscular Volume 92.3 fL (80.0-100.0); Mean Platelet Volume 7.3 fL (7.0-11.0); Platelet Count 250 th/mm3 (150-450); Red Blood Count 4.11 mil/mm3 (4.50-5.90); Red Cell Distribution Width 13.1 % (11.6-17.2); White Blood Count 8.1 th/mm3 (4.0-11.0)
[2018-06-24 05:49] LABS: Anion Gap 8 meq/L (5-15); Blood Urea Nitrogen 10 mg/dL (7-18); Calcium 8.7 mg/dL (8.5-10.1); Chloride 106 meq/L (98-107); Glomerular Filtration Rate Greater Than 89 mL/min (>89); Glucose,Random 97 mg/dL (74-106); Potassium 3.6 meq/L (3.5-5.1); Sodium 141 meq/L (136-145)
[2018-06-24] MEDS: Heparin - SQ 10,000 UNITS/ML Vial SQ SCH (06:08)
--- NOTE | 2018-06-24 06:41 | P.PNOP ---
Subjective Interval history: Resting comfortably with pain control. Physical Exam Vital signs: Vital Signs 06/23/18 08:00 06/23/18 08:09 06/23/18 09:55 Temperature 98.2 F Pulse Rate 63 Respiratory Rate 16 18 18 Blood Pressure 112/78 Pulse Oximetry 99 06/23/18 10:00 06/23/18 12:00 06/23/18 12:53 Temperature 98 F Pulse Rate 65 54 L Respiratory Rate 18 16 Blood Pressure 133/79 Pulse Oximetry 100 06/23/18 13:02 06/23/18 14:00 06/23/18 16:00 Temperature 98.3 F 98.1 F Pulse Rate 55 L 63 Respiratory Rate 16 18 18 Blood Pressure 150/86 H 146/98 H Pulse Oximetry 99 100 06/23/18 18:48 06/23/18 19:20 06/23/18 20:00 Temperature 98.3 F Pulse Rate 63 Respiratory Rate 20 18 20 Blood Pressure 149/87 H Pulse Oximetry 100 06/24/18 00:00 06/24/18 00:30 06/24/18 04:00 Temperature 98.1 F 98.1 F Pulse Rate 52 L 58 L 55 L Respiratory Rate 18 20 Blood Pressure 134/86 163/88 H Pulse Oximetry 98 99 Intake & Output 06/23/18 06/23/18 06/24/18 06:59 18:59 06:59 Intake Total 3650 / 3650 1060 / 1060 1100 / 1100 Output Total 2100 / 2100 250 / 250 Balance 1550 / 1550 810 / 810 1100 / 1100 Weight 76.1 kg Intake: IV 2250 / 2250 400 / 400 1100 / 1100 LR 1000 mL Inj 1,000 ML @ 80 1000 / 1000 mls/hr IV.CONT .[id number] [facility] Rx# :[id number] NS Inj 1,000 ML @ 84 mls/hr IV. 1000 / 1000 1000 / 1000 CONT .[id number] [facility] Rx#:[id number] Vancomycin Inj 1,000 MG In NS 250 / 250 250 / 250 Inj 250 ML @ 250 mls/hr IV.SIG Q12H [facility] Rx#:[id number] Ancef 2 GM Premix Inj 2 gm In 100 / 100 50 ml @ 100 mls/hr IV.SIG Q8H [facility] Rx#:[id number] Ancef Inj 2,000 MG In NS Inj 80 100 / 100 ML @ 200 mls/hr IV.SIG Q8H [facility] Rx#:[id number] Oral 700 / 700 660 / 660 Anesthesia Amount 700 / 700 Output: Urine 2100 / 2100 250 / 250 Other: # Voids 3 Date of Last Bowel Movement 06/23/18 06/23/18 # Bowel Movements 0 Narrative: Left lower extremity: No pain with hip or knee range of motion. Splint intact. Intact sensation with good capillary refills distally. Is able to move all toes Results - Labs CBC & Chem 7: 06/24/18 05:00 06/24/18 05:00 Laboratory Results - last 24 hr 06/24/18 06/24/18 05:00 05:00 WBC 8.1 RBC 4.11 L Hgb 13.0 Hct 38.0 L MCV 92.3 MCH 31.7 MCHC 34.4 RDW 13.1 Plt Count 250 MPV 7.3 Sodium 141 Potassium 3.6 Chloride 106 Carbon Dioxide 27.0 Anion Gap 8 BUN 10 Creatinine 0.73 Estimated GFR Greater than 89 Random Glucose 97 Calcium 8.7 Assessment and Plan - Assessment and Plan 1) Left Tongue Type Calcaneus fx s/p ORIF - POD 2 -NWB -elevate -maintain splint at all times -ortho surgeries complete -DC planning back to correctional facility -Orthopedically cleared for discharge -f/u with [facility] or [facility] in 2 weeks
[2018-06-24] MEDS: Folic Acid 1 MG Tablet PO SCH (08:09)
[2018-06-24] MEDS: Famotidine PF Inj 20 MG/2 ML Vial IV.PUSH SCH ×2 (08:09→21:19)
[2018-06-24] MEDS: Calcium/Vitamin D 250/125 MG Tablet PO SCH ×3 (08:09→17:12)
[2018-06-24] MEDS: Senna/Docusate Sodium 8.6/50 MG Tablet PO SCH ×2 (08:09→21:20)
[2018-06-24] MEDS: Morphine Inj 4 MG/ML Vial IV.PUSH PRN ×3 (14:17→21:18)
--- NOTE | 2018-06-24 16:19 | P.PN ---
Subjective Interval history: 38-year-old male s/p ORIF of left talar fractures who is attempting to wean from narcotic pain meds in order to go to snf or no narcotics be available. He is still needing morphine periodically for 7 out of 10 pain. Physical Exam Vital signs: Vital Signs 06/23/18 18:48 06/23/18 19:20 06/23/18 20:00 Temperature 98.3 F Pulse Rate 63 Respiratory Rate 20 18 20 Blood Pressure 149/87 H Pulse Oximetry 100 06/24/18 00:00 06/24/18 00:30 06/24/18 04:00 Temperature 98.1 F 98.1 F Pulse Rate 52 L 58 L 70 Respiratory Rate 18 20 Blood Pressure 134/86 163/88 H Pulse Oximetry 98 99 06/24/18 08:00 06/24/18 11:44 Temperature 98.0 F 98.3 F Pulse Rate 52 L 71 Respiratory Rate 17 17 Blood Pressure 148/92 H 136/89 Pulse Oximetry 100 98 Intake & Output 06/23/18 06/24/18 06/24/18 18:59 06:59 18:59 Intake Total 1060 / 1060 1200 / 1200 Output Total 250 / 250 Balance 810 / 810 1200 / 1200 Intake: IV 400 / 400 1200 / 1200 NS Inj 1,000 ML @ 84 mls/hr IV. 1000 / 1000 CONT .[id number] [facility] Rx#:[id number] Vancomycin Inj 1,000 MG In NS 250 / 250 Inj 250 ML @ 250 mls/hr IV.SIG Q12H [facility] Rx#:[id number] Ancef 2 GM Premix Inj 2 gm In 100 / 100 50 ml @ 100 mls/hr IV.SIG Q8H [facility] Rx#:[id number] Ancef Inj 2,000 MG In NS Inj 80 200 / 200 ML @ 200 mls/hr IV.SIG Q8H [facility] Rx#:[id number] Oral 660 / 660 Output: Urine 250 / 250 Other: Date of Last Bowel Movement 06/23/18 06/23/18 06/23/18 Narrative: GENERAL: AAOx3, no acute distress SKIN: Warm and dry. No rashes HEAD: Atruamtic, normocephalic. EYES: No scleral icterus. No injection or drainage. ENT: Moist mucous membranes, patent nares, no erythema of oropharynx. NECK: Supple, trachea midline. No JVD or lymphadenopathy. Normal thyroid. CARDIOVASCULAR: Regular rate and rhythm. No murmurs, gallops, or rubs. RESPIRATORY: Breath sounds clear equal bilaterally. No crackles or wheezes. No accessory muscle use. GASTROINTESTINAL: Abdomen soft, non-tender, nondistended, normal active bowel sounds MUSCULOSKELETAL: No cyanosis, or edema. Left lower extremity in soft cast NEURO: CN II-XII grossly intact, no focal deficits, no slurring of speech Results - Labs CBC & Chem 7: 06/24/18 05:00 06/24/18 05:00 Laboratory Results - last 24 hr 06/24/18 06/24/18 05:00 05:00 WBC 8.1 RBC 4.11 L Hgb 13.0 Hct 38.0 L MCV 92.3 MCH 31.7 MCHC 34.4 RDW 13.1 Plt Count 250 MPV 7.3 Sodium 141 Potassium 3.6 Chloride 106 Carbon Dioxide 27.0 Anion Gap 8 BUN 10 Creatinine 0.73 Estimated GFR Greater than 89 Random Glucose 97 Calcium 8.7 Assessment and Plan - Plan Left calcaneal fracture ORIF of left talus on 06/22/2018 Appreciate orthopedics consult Due to incarceration in snf policy patient will have to be off all narcotics prior to discharge He is still requiring periodic morphine use for breakthrough pain, 7/10 pain after taking ibuprofen and Tylenol h/o polysubstance abuse History of IV drug use, recreational drugs, alcohol Continue to monitor for signs of withdrawal Consider pain tolerance postop DVT prophylaxis Heparin Discharge planning Plan for discharge on Thursday
[2018-06-25] MEDS: Morphine Inj 4 MG/ML Vial IV.PUSH PRN ×3 (00:19→08:00)
[2018-06-25] MEDS: Heparin - SQ 10,000 UNITS/ML Vial SQ SCH (06:29)
--- NOTE | 2018-06-25 06:31 | P.PNOP ---
Subjective Interval history: Pain control improving. We will [facility] this [facility] Physical Exam Vital signs: Vital Signs 06/24/18 08:00 06/24/18 11:44 06/24/18 12:00 Temperature 98.0 F 98.3 F Pulse Rate 52 L 71 Respiratory Rate 17 17 15 Blood Pressure 148/92 H 136/89 Pulse Oximetry 100 98 06/24/18 16:00 06/24/18 20:00 06/24/18 21:20 Temperature 98.4 F 98.4 F Pulse Rate 70 58 L Respiratory Rate 18 17 18 Blood Pressure 120/74 126/73 Pulse Oximetry 98 99 06/25/18 00:00 06/25/18 01:19 Temperature 97.8 F Pulse Rate 50 L Respiratory Rate 17 18 Blood Pressure 130/70 Pulse Oximetry 98 Intake & Output 06/24/18 06/24/18 06/25/18 06:59 18:59 06:59 Intake Total 1200 / 1200 960 / 960 Balance 1200 / 1200 960 / 960 Intake: IV 1200 / 1200 NS Inj 1,000 ML @ 84 mls/hr IV. 1000 / 1000 CONT .[id number] PARAS Rx#:[id number] Ancef Inj 2,000 MG In NS Inj 80 200 / 200 ML @ 200 mls/hr IV.SIG Q8H PARAS Rx#:[id number] Oral 960 / 960 Other: # Voids 4 Date of Last Bowel Movement 06/23/18 06/23/18 Narrative: GENERAL: AAOx3, no acute distress Left lower extremity: Clean dry splint which is intact. Intact sensation distally in all toes. Good capillary refill Results - Labs CBC & Chem 7: 06/24/18 05:00 06/24/18 05:00 Assessment and Plan - Assessment and Plan 1) Left Tongue Type Calcaneus fx s/p ORIF - POD 3 -NWB -elevate -maintain splint at all times -ortho surgeries complete -DC planning back to correctional facility -Orthopedically cleared for discharge -f/u with [facility] or [facility] in 2 weeks
[2018-06-25] MEDS: Calcium/Vitamin D 250/125 MG Tablet PO SCH (07:59)
[2018-06-25] MEDS: Folic Acid 1 MG Tablet PO SCH (07:59)
[2018-06-25] MEDS: Senna/Docusate Sodium 8.6/50 MG Tablet PO SCH (07:59)
[2018-06-25] MEDS: Famotidine PF Inj 20 MG/2 ML Vial IV.PUSH SCH (08:00)
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
[2018-06-25 09:25] VITALS: BP 142/86; PULSE 82; RESP 18; TEMP 97.8; O2SAT 99
== END 2018-06-25 11:40 ==
LOC: N03 12:49 → N06 06-23 13:44
PROVIDERS: ADMIT Family Medicine; ATTEND Family Medicine
PROC: ORIFCAL (2018-06-22 10:50)